=== PATIENT | female | born 1930 | race Caucasian/White ===

== ENCOUNTER 2016-09-06 11:06 | Inpatient (IN) | payer OTHER, BC ==
[~2016-09-06] VITALS: Ht 162.6 cm; Wt 81.4 kg
[~2016-09-06 11:06] MED LIST: ADVIL,NUPRIN,M200 MG PO; APRESOLINE25 MG PO; BACTRIM,SEPT1 TABLET PO; CATAPRES0.1 MG PO; HYDROCHLOROTH12.5 M3 PO; HYDROCHLOROTHIA25 MG PO; NIFEDIPINE ER90 MG PO; PREDNISONE50 MG PO; PYRIDIUM100 MG PO; SYNTHROID50 MCG PO; ZITHROMAX250 MG PO
[2016-09-06 12:37] LABS: CHLORIDE 107 mEq/L (99-109); POTASSIUM 4.3 mEq/L (3.7-5.4); SODIUM 143 mEq/L (136-147)
[2016-09-06 12:39] LABS: GLUCOSE 106 mg/dL (70-99)
[2016-09-06 12:40] LABS: ANION GAP 7 MEQ/L (2-14)
[2016-09-06 12:42] LABS: GFR ESTIMATE (CALCULATED) 56 mL/min/
[2016-09-06 12:43] LABS: UREA NITROGEN (BUN) 20 mg/dL (9-23)
[2016-09-06 12:44] LABS: TROP-I INTERPRETATION NEGATIVE; TROPONIN-I < 0.01 ng/mL (0.0-0.30)
[2016-09-06 13:01] LABS: HEMATOCRIT 47.1 % (36.0-46.0); MCH 30.5 PG (29.0-34.0); MCHC 30.8 G/DL (30.0-36.0); MCV 98.9 FL (83-99); MEAN PLAT.VOLUME 11.3 uM^3 (9.5-12.4); PLATELET COUNT 155 K/uL (156-360); RBC DIS.WIDTH-CV 13.1 % (11.8-14.6); RBC DIS.WIDTH-SD 47.6 % (39-53); RED BLOOD COUNT 4.76 M/uL (3.80-5.20); WHITE BLOOD COUNT 4.9 K/uL (4.1-10.2)
[2016-09-06] MEDS ORDERED: TYLENOL REGULA325 MG PO (19:29)
[2016-09-06 20:14] LABS: SAMPLE HEMOLYSIS CHECK 0; SAMPLE ICTERIC CHECK 0; SAMPLE LIPEMIA CHECK 0
[2016-09-06 20:19] LABS: HDL CHOLESTEROL 60 MG/DL (Desirable>=50); LDL CHOLESTEROL 115 mg/dL (Desirable<100); NON-HDL CHOLESTEROL 137 mg/dL (Desirable<160); TOTAL CHOLESTEROL 197 mg/dL (Desirable<200); TRIGLYCERIDES 112 MG/DL (Normal: <150)
[2016-09-06 22:00] VITALS: BP 145/73
[2016-09-06 22:55] LABS: TROP-I INTERPRETATION NEGATIVE; TROPONIN-I < 0.01 ng/mL (0.0-0.30)
[2016-09-07 04:00] VITALS: BP 177/60
[2016-09-07 04:33] LABS: TROP-I INTERPRETATION NEGATIVE; TROPONIN-I < 0.01 ng/mL (0.0-0.30)
[2016-09-07 08:05] VITALS: BP 148/70
[2016-09-07 11:16] VITALS: BP 146/70
[2016-09-07 15:18] VITALS: BP 144/70
[2016-09-07 19:39] VITALS: BP 187/90
[2016-09-07 23:19] VITALS: BP 159/70
[2016-09-08 04:03] VITALS: BP 161/75
[2016-09-08 11:00] VITALS: BP 172/86
[2016-09-08 20:00] VITALS: BP 187/84
[2016-09-09] VITALS: BP 168/84
[2016-09-09 04:00] VITALS: BP 167/81
[2016-09-09] MEDS ORDERED: LOPRESSOR25 MG PO (08:43)
[2016-09-09] MEDS ORDERED: AMLODIPINE BESYL5 MG PO (08:43)
== END 2016-09-09 10:15 | disposition home health service (06) | DRG 305 ==
LOC: EME 11:06 → 5SOUTH 19:36 → EDOF 19:36 → 5SOUTH 21:54
PROVIDERS: Physician Assistant Medical
DX: I16.9 Hypertensive crisis, unspecified (principal); N18.3 Chronic kidney disease, stage 3 (moderate); I45.10 Unspecified right bundle-branch block; Z91.19 Patient's noncompliance with other medical treatment and regimen; E03.9 Hypothyroidism, unspecified; I44.4 Left anterior fascicular block; F01.50 Vascular dementia, unspecified severity, without behavioral disturbance, psychotic disturbance, mood disturbance, and anxiety; E78.5 Hyperlipidemia, unspecified; E66.9 Obesity, unspecified; Z68.30 Body mass index [BMI] 30.0-30.9, adult; R07.89 Other chest pain; I42.2 Other hypertrophic cardiomyopathy; I13.10 Hypertensive heart and chronic kidney disease without heart failure, with stage 1 through stage 4 chronic kidney disease, or unspecified chronic kidney disease
CPT/HCPCS: 70450; 71020; 73502; 80048; 80061; 83880; 84443; 84484; 85027; 93005; 93306; 99281; 99285; J0360; J2405